=== PATIENT | female | born 1985 | race Caucasian/White ===

== ENCOUNTER 2023-05-30 05:52 | Day surgery (SDC) | payer OTHER, SELFPAY ==
[2023-05-13 14:35] VITALS: BMI 22.3
[2023-05-30] VITALS (10 sets, daily range): BP systolic 111–130; BP diastolic 49–77; PULSE 66–94; RESP 14–16; TEMP 36.7–36.8; O2SAT 98–100
[2023-05-30] MEDS: SCOPOLAMINE 1 MG PATCH 1 PATCH TRANSDERM (06:30)
[2023-05-30] MEDS: LACTATED RINGERS 1,000 ML 30 ML IV CONT ×2 (06:30→07:28)
--- NOTE | 2023-05-30 07:05 | WPDANESEPPF ---
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 Patient Data Age: 38 Gender: F Height: 1.78 m Weight: 72.7 kg Last Vital Signs Temp 36.7 C 05/30/23 06:11 Pulse 66 05/30/23 06:11 Resp 16 05/30/23 06:11 BP 113/49 L 05/30/23 06:11 Pulse Ox 100 05/30/23 06:11 O2 Del Method Room Air 05/30/23 06:11 Allergies Allergy/AdvReac Type Severity Reaction Status Date / Time No Known Allergies Allergy Verified 05/30/23 06:10 Home Medications Medication Instructions Recorded Confirmed Type albuterol sulfate 90 mcg/actuation 1.5 puff inhalation QID PRN 05/13/23 05/30/23 History aerosol inhaler (ProAir HFA) Shortness Of Breath Or Wheezing budesonide-formoterol HFA 80 2 puff inhalation BID 05/13/23 05/30/23 History mcg-4.5 mcg/actuation aerosol inhaler sertraline 25 mg tablet 25 mg PO DAILY 05/13/23 05/30/23 History Patient hx anesthesia problems: none Family hx anesthesia problems: none Results Review: All pre-operative results and documents have been reviewed as part of the pre-operative evaluation. [facility] Social History Social History (Updated 05/30/23 @ 07:26 by Kiran Martin DO) Smoking status: Never smoker Second hand tobacco smoke exposure: No Alcohol intake: current Substance use: current Substance use type: marijuana Other substance usage details: daily Living arrangements: with family Spiritual care concerns: No Anes - Eval Final PreProcedure Day of Procedure 05/30/23 07:05 Patient weight: normal Heart: regular rate and rhythm Lungs: clear to auscultation Airway: Mallampati scale class II Neurological: alert and oriented Last oral intake: >/= 8 hours ASA classification: III Emergent: no Anesthetic plan: proceed Anesthesia type and monitoring: general LMA and standard monitoring Results Review: All pre-operative results and documents have been reviewed as part of the pre-operative evaluation. Informed Consent: The patient's anesthetic plan and its attendant risks and benefits were discussed with the patient/family/POA. Questions were solicited and answers provided to the satisfaction of the patient/family/POA.
--- NOTE | 2023-05-30 07:20 | P.OP_ITS ---
Procedure Note - Detailed Date of Procedure 05/30/23 Pre-op Diagnosis Micromastia and Breast Ptosis Post-op Diagnosis Same Procedure Performed Bilateral implant exchange with mastopexy and Galaflex Surgeon Rajesh Dill MD Anesthesia General Findings Superior pedicle Inverted t Bilateral Barbi Pickering SoftTouch silicone implants 445 cc Right - REF# [id number] SN [id number] Left - REF# [id number] SN [id number] Galaflex Lot# [id number] REF# [id number] Description of Procedure She is here today for the above. Previously and again today the risks, benefits, alternatives were discussed in extensive detail. I wanted her to be very realistic about the risks involved as well as expectations. We discussed aftercare and what to monitor for. Made sure answered all of her questions to her satisfaction today and consent was obtained. Marked in the preoperative holding area with their verification. The patient was taken to the operating room placed supine on the operating table. Anesthesia was provided by anesthesiology. A surgical time-out was taken. We cleansed the skin and 1% lidocaine and 0.25% Marcaine with epinephrine was used anesthetize as a field block. She was prepped and draped in a standard sterile fashion. Tegaderm nipple Sampson were placed. A 15 blade used to make an incision just superior to the inframammary fold leaving a cusp of de-epithelized tissue at the t junction. Dissection was continued until the pocket was identified. I e ntered and previous implants were removed. No worrisome features, no seroma. I copiously irrigated with saline solution. Capsulotomy and capsulorraphy completed as needed based on preoperative planning. Next the use a triple antibiotic and Betadine containing solution to irrigate the pocket. I washed my gloves with the triple antibiotic and Betadine solution. We washed the implant immediately upon opening it with this solution and only opened it when we needed it. I used implant funnel and no-touch technique. The implant was introduced into the pocket using the funnel. Having verified positioning of the implant this was closed using 2-0 PDS. I tailor tacked the breast into position. Placed her in a sitting position. Verified the nipple-areolar location based on preoperative planning as well as intraoperative observations and measurements in full agreement. She was placed supine. I de-epithelialized the pedicle. I then removed the inferior central portion of the breast need making sure the implant was well protected. I elevated medial and lateral tissue flaps as well for planned closure. Galaflex was soaking on the back table. Trimmed and sutured into place with 2-0 Vicryl. I closed along the IMF with 2-0 Stratafix. Along the vertical with 2-0 PDS. I closed around the areola with 3-0 strata fix. 3-0 Monocryl along the vertical. 3-0 Stratafix along the IMF. I finally closed everything with running subcuticular 4-0 Monocryl and tissue glue. Fluffs and surgical bra were placed. Estimated Blood Loss 50 Drains No Packing No Pathology None sent Complications No immediate complications Condition Stable Disposition PACU
--- NOTE | 2023-05-30 07:20 | WPDHPUPDATE1 ---
History and Physical Update Update Date/Time: 05/30/23 07:20 History and Physical has been reviewed, including an updated exam of the patient. There are NO changes in the patient's condition. Risks, benefits, and alternatives have been discussed and questions answered. Patient agrees to proceed with procedure.
[2023-05-30] MEDS: TRANEXAMIC ACID 1,000 MG/10 ML AMPUL 1000 MG IV PUSH (07:29)
[2023-05-30] MEDS: ceFAZolin SODIUM 2 GM/20 ML SW SYRINGE IV PUSH (07:29)
[2023-05-30] MEDS: NACL 0.9% IRRIG POUR BOTTLE 900 ML, GENTAMICIN SULFATE INJ 160 MG, ceFAZolin 2 GM, POVI... IRRIGATION (08:01)
[2023-05-30] MEDS: LIDO 1%/EPINEPHRINE 1:100,000 20 ML VIAL 30 ML INFILTRATE (08:05)
[2023-05-30] MEDS: ONDANSETRON INJ 4 MG/2 ML VIAL IV PUSH (10:28)
--- NOTE | 2023-05-30 10:34 | SUR.PHASEI ---
1028; PT C/O MILD NAUSEA. ZOFRAN GIVEN, COLD CLOTH APPLIED TO FOREHEAD. PT SITTING UPRIGHT PER REQUEST
--- NOTE | 2023-05-30 10:35 | SUR.PHASEI ---
PT GIVEN ICE CHIPS PER REQUEST. ADVISED TO EAT SPARINGLY
[2023-05-30] MEDS: diphenhydrAMINE HCl INJ 50 MG/ML VIAL 25 MG IV PUSH ×2 (10:50→11:09)
--- NOTE | 2023-05-30 10:51 | SUR.PHASEI ---
PT EATING ICE CHIPS. STATES STILL HAVING MILD NAUSEA. PT STATES SHES READY TO SEE SPOUSE.
--- NOTE | 2023-05-30 11:59 | SUR.PHASEII ---
Pt ready to be D/C from [facility]. Pt A&Ox4. Pt states does not want any pain medication and wants to wait until she gets home. VSS. Pt states pain is manageable. Pt wheeled out of ASC in no apparent distress. Pt's to drive her home
--- NOTE | 2023-05-30 12:26 | WPDANESPN ---
Anes - Prog Note Post-Op Date/Time: 05/30/23 12:26 Cardiovascular status: normal Respiratory status: normal Airway patency: baseline Mental status: baseline Post-Op hydration status: normal Vital Signs: Last Vital Signs Temp 36.8 C 05/30/23 09:56 Pulse 77 05/30/23 11:35 Resp 15 05/30/23 11:35 BP 111/57 L 05/30/23 11:35 Pulse Ox 100 05/30/23 11:35 O2 Del Method Room Air 05/30/23 11:35 O2 Flow Rate 6 05/30/23 10:10 Pain Score (VAS): 2 I/O: Intake & Output 05/29/23 05/30/23 05/30/23 23:59 07:59 15:59 Intake Total 1000 300 Balance 1000 300 Post-procedural complaints: none Patient Feedback: Patient satisfied with anesthetic care. Other Findings: Patient vital signs back to baseline. Patient denies nausea and vomiting. Patient's pain under control. Patient OK for discharge.
== END 2023-05-30 12:00 | disposition home or self-care (01) ==
PROVIDERS: Visit Provider Surgery Plastic and Reconstructive Surgery
PROC: (CPT 19342; principal; 2023-05-30 07:30)
PROC: (CPT 19316; 2023-05-30 07:30)
DX: N64.82 Hypoplasia of breast (principal)
CPT/HCPCS: 19342